=== PATIENT | female | born 1965 | race American Indian/Alaskan Native ===

== ENCOUNTER 2017-02-03 07:52 | Emergency (ER) | payer SELFPAY ==
[2017-02-03 08:01] VITALS: BP 169/71
[2017-02-03 08:27] LABS: Basophils % (Auto) 0.9 % (0.0-1.8); Eosinophils % (Auto) 1.6 % (0.0-4.3); Hematocrit 33.4 % (30.3-42.9); Hemoglobin 11.2 gm/dl (10.1-14.3); Mean Corpuscular HGB Conc 34 % (30-34); Mean Corpuscular Hemoglobin 26 pg (28-32); Mean Corpuscular Volume 78 fl (79-97); Platelet Count 334 K/mm3 (140-440); Red Blood Count 4.27 M/mm3 (3.65-5.03); Red Cell Distribution Width 16.5 % (13.2-15.2); White Blood Count 9.5 K/mm3 (4.5-11.0)
[2017-02-03 08:41] LABS: Bacteria,Urine 1+ /HPF (Negative); Bilirubin,Urine NEG (Negative); Blood,Urine MOD (Negative); Ketones,Urine NEG (Negative); Leukocyte Esterase,Urine LG (Negative); Mucus,Urine FEW /HPF; Nitrite,Urine NEG (Negative); Urobilinogen,Urine < 2.0 mg/dL (<2.0)
[2017-02-03 08:43] LABS: WBC,Urine > 182.0 /HPF (0.0-6.0)
[2017-02-03 08:54] LABS: Alanine Aminotransferase 7 units/L (7-56); Albumin 3.8 g/dL (3.9-5); Albumin/Globulin Ratio 1.2 %; Alkaline Phosphatase 46 units/L (35-129); Anion Gap 16 mmol/L; BUN/Creatinine Ratio 11.25; Blood Urea Nitrogen 9 mg/dL (7-17); Calcium 8.9 mg/dL (8.4-10.2); Carbon Dioxide 23 mmol/L (22-30); Chloride 104.4 mmol/L (98-107); Glucose 116 mg/dL (65-100); Lipase 20 units/L (13-60); Potassium 3.7 mmol/L (3.6-5.0); Sodium 140 mmol/L (137-145)
--- NOTE | 2017-02-03 11:32 | Emergency Department Report ---
<YANICK GARCIA - Last Filed: 02/03/17 11:28> ED Female HPI - General Chief complaint: Abdominal Pain Stated complaint: LEFT SIDE PAIN/CONSTIPATION Time Seen by Provider: 02/03/17 11:09 Source: patient Mode of arrival: Ambulatory Limitations: No Limitations - History of Present Illness MD Complaint: dysuria Onset/Timin -: Sudden, days(s) Location: suprapubic Radiation: non-radiating Severity: mild Severity scale (0 -10): 3 Quality: burning, other (uregency and freqency no discharge) Consistency: intermittent Improves with: none Worsens with: urination Are you Now?: No Last Menstrual Period: 01/18/16 EDC: 10/24/16 Associated Symptoms: abdominal pain, dysuria. denies: vaginal discharge, vaginal bleeding, nausea/vomiting, fever/chills, headaches, hematuria, shortness of breath - Related Data Sexually active: No Previous Rx's Medication Instructions Recorded Last Taken Type Lisinopril [Zestril] 2.5 mg PO QDAY #30 tablet 08/02/13 Unknown Rx Acetaminophen/Codeine [Tylenol #3] 1 tab PO BID PRN #10 tab 12/09/14 Unknown Rx Erythromycin [Erythromycin Ophth 10 applic OU TID #1 tube 12/09/14 Unknown Rx Oint] Cephalexin [Keflex] 500 mg PO BID #14 capsule 02/03/17 Unknown Rx Phenazopyridine [Pyridium] 100 mg PO TID #6 tab 02/03/17 Unknown Rx Allergies Allergy/AdvReac Type Severity Reaction Status Date / Time No Known Allergies Allergy Verified 02/03/17 07:56 ED Review of Systems ROS: Stated complaint: LEFT SIDE PAIN/CONSTIPATION Other details as noted in HPI Constitutional: denies: chills, fever Eyes: denies: eye pain, eye discharge, vision change ENT: denies: ear pain, throat pain Respiratory: denies: cough, shortness of breath, wheezing Cardiovascular: denies: chest pain, palpitations Endocrine: no symptoms reported Gastrointestinal: abdominal pain Genitourinary: urgency, dysuria, frequency. denies: discharge Musculoskeletal: denies: back pain, joint swelling, arthralgia Skin: denies: rash, lesions Neurological: denies: headache, weakness, paresthesias Psychiatric: denies: anxiety, depression Hematological/Lymphatic: denies: easy bleeding, easy bruising ED Past Medical Hx - Past Medical History Previous Medical History?: No - Surgical History Past Surgical History?: No Additional Surgical History: Tubaligation - Social History Smoking Status: Current Every Day Smoker Substance Use Type: None - Medications Home Medications: Home Medications Medication Instructions Recorded Confirmed Last Taken Type Lisinopril [Zestril] 2.5 mg PO QDAY #30 tablet 08/02/13 Unknown Rx Acetaminophen/Codeine [Tylenol #3] 1 tab PO BID PRN #10 tab 12/09/14 Unknown Rx Erythromycin [Erythromycin Ophth 10 applic OU TID #1 tube 12/09/14 Unknown Rx Oint] Cephalexin [Keflex] 500 mg PO BID #14 capsule 02/03/17 Unknown Rx Phenazopyridine [Pyridium] 100 mg PO TID #6 tab 02/03/17 Unknown Rx ED Physical Exam - General Limitations: No Limitations General appearance: alert, in no apparent distress - Head Head exam: Present: atraumatic, normocephalic - Eye Eye exam: Present: normal appearance - ENT ENT exam: Present: mucous membranes moist - Neck Neck exam: Present: normal inspection - Respiratory Respiratory exam: Present: normal lung sounds bilaterally. Absent: respiratory distress - Cardiovascular Cardiovascular Exam: Present: regular rate, normal rhythm. Absent: systolic murmur, diastolic murmur, rubs, gallop - GI/Abdominal GI/Abdominal exam: Present: soft, normal bowel sounds - Rectal Rectal exam: Present: deferred - External exam: Present: other (exam deferred per pt ) - Extremities Exam Extremities exam: Present: normal inspection - Back Exam Back exam: Present: normal inspection - Neurological Exam Neurological exam: Present: alert, oriented X3 - Psychiatric Psychiatric exam: Present: normal affect, normal mood - Skin Skin exam: Present: warm, dry, intact, normal color. Absent: rash ED Course Vital Signs 02/03/17 07:56 Temperature 97.4 F L Pulse Rate 65 Respiratory 20 Rate Blood Pressure 169/71 Blood Pressure 165/71 [Left] O2 Sat by Pulse 100 Oximetry ED Medical Decision Making - Lab Data Result diagrams: 02/03/17 08:17 02/03/17 08:17 Laboratory Tests 02/03/17 02/03/17 02/03/17 08:04 08:17 08:17 WBC 9.5 RBC 4.27 Hgb 11.2 Hct 33.4 MCV 78 L MCH 26 L MCHC 34 RDW 16.5 H Plt Count 334 Lymph % (Auto) 20.2 [place] % (Auto) 7.9 H Eos % (Auto) 1.6 Baso % (Auto) 0.9 Lymph # 1.9 [place] # 0.8 Eos # 0.1 Baso # 0.1 Seg Neutrophils % 69.4 Seg Neutrophils # 6.6 Sodium Potassium Chloride Carbon Dioxide Anion Gap BUN Creatinine Estimated GFR BUN/Creatinine Ratio Glucose Calcium Total Bilirubin AST ALT Alkaline Phosphatase Total Protein Albumin Albumin/Globulin Ratio Lipase HCG, Qual Negative Urine Color Yellow Urine Turbidity Cloudy Urine pH 6.0 Ur Specific [place] 1.015 Urine Protein 100 mg/dl Urine Glucose (UA) 50 Urine Ketones Neg Urine Blood Mod Urine Nitrite Neg Urine Bilirubin Neg Urine Urobilinogen < 2.0 Ur Leukocyte Esterase Lg Urine WBC (Auto) > 182.0 H Urine RBC (Auto) 67.0 U Epithel Cells (Auto) 1.0 Urine Bacteria (Auto) 1+ Urine WBC Clumps 1+ Urine Mucus Few 02/03/17 08:17 WBC RBC Hgb Hct MCV MCH MCHC RDW Plt Count Lymph % (Auto) [place] % (Auto) Eos % (Auto) Baso % (Auto) Lymph # [place] # Eos # Baso # Seg Neutrophils % Seg Neutrophils # Sodium 140 Potassium 3.7 Chloride 104.4 Carbon Dioxide 23 Anion Gap 16 BUN 9 Creatinine 0.8 Estimated GFR > 60 BUN/Creatinine Ratio 11.25 Glucose 116 H Calcium 8.9 Total Bilirubin 0.30 AST 9 ALT 7 Alkaline Phosphatase 46 Total Protein 7.0 Albumin 3.8 L Albumin/Globulin Ratio 1.2 Lipase 20 HCG, Qual Urine Color Urine Turbidity Urine pH Ur Specific [place] Urine Protein Urine Glucose (UA) Urine Ketones Urine Blood Urine Nitrite Urine Bilirubin Urine Urobilinogen Ur Leukocyte Esterase Urine WBC (Auto) Urine RBC (Auto) U Epithel Cells (Auto) Urine Bacteria (Auto) Urine WBC Clumps Urine Mucus - Medical Decision Making UTI, urinary urgency frequency and dysuria no vaginal discharge no vaginal bleeding, not sexullay active mild superpubic pain no cva tenderness likely cystitis Critical care attestation.: If time is entered above; I have spent that time in minutes in the direct care of this critically ill patient, excluding procedure time. ED Disposition Disposition: DC-01 TO HOME OR SELFCARE Is pt being admited?: No Does the pt Need Aspirin: No Condition: Good Instructions: Abdominal Pain (ED) Prescriptions: Cephalexin [Keflex] 500 mg PO BID #14 capsule Phenazopyridine [Pyridium] 100 mg PO TID #6 tab Referrals: PRIMARY CARE, [Primary Care Provider] - 3-5 Days Forms: Work/School Release Form(ED) Time of Disposition: 11:34 <MALLORY HO - Last Filed: 02/03/17 13:43> ED Medical Decision Making - Lab Data Result diagrams: 02/03/17 08:17 02/03/17 08:17
== END 2017-02-03 11:38 | disposition home or self-care (01) ==
LOC: ED 07:52
DX: R10.9 Unspecified abdominal pain (principal); R30.0 Dysuria; F17.200 Nicotine dependence, unspecified, uncomplicated
CPT/HCPCS: 36415; 80053; 81001; 83690; 84703; 85025; 99283

== ENCOUNTER 2017-07-22 11:39 | Emergency (ER) | payer OTHER ==
[2017-07-22 12:38] LABS: Basophils % (Auto) 1.7 % (0.0-1.8); Eosinophils % (Auto) 4.9 % (0.0-4.3); Hematocrit 36.2 % (30.3-42.9); Mean Corpuscular HGB Conc 33 % (30-34); Mean Corpuscular Hemoglobin 27 pg (28-32); Mean Corpuscular Volume 81 fl (79-97); Platelet Count 263 K/mm3 (140-440); Red Blood Count 4.48 M/mm3 (3.65-5.03); Red Cell Distribution Width 17.6 % (13.2-15.2); White Blood Count 6.3 K/mm3 (4.5-11.0)
[2017-07-22 12:57] LABS: Anion Gap 18 mmol/L; BUN/Creatinine Ratio 16; Blood Urea Nitrogen 11 mg/dL (7-17); Calcium 8.8 mg/dL (8.4-10.2); Carbon Dioxide 24 mmol/L (22-30); Chloride 104.4 mmol/L (98-107); Glucose 139 mg/dL (65-100); Potassium 3.9 mmol/L (3.6-5.0); Sodium 142 mmol/L (137-145)
--- NOTE | 2017-07-22 13:34 | XRay Report ---
ROUTINE CHEST, TWO VIEWS: HISTORY: Chest pain, cough. The trachea, heart, mediastinal contour, lung tan and bony thorax are unremarkable. IMPRESSION: Unremarkable chest x-ray.
--- NOTE | 2017-07-22 19:40 | Emergency Department Report ---
ED Chest Pain HPI - General Chief Complaint: Chest Pain Stated Complaint: CHEST PAIN Time Seen by Provider: 07/22/17 19:39 Source: patient, family Mode of arrival: Ambulatory Limitations: No Limitations - History of Present Illness Initial Comments: Patient here reports that she has cough 1 week. She said prior to that she has a runny nose and nasal congestion with drainage to the back of her throat and cough is worse with laying down at night. She is complaining of pain to her mid sternal area and mid back here with coughing. Patient says she was having some pelvic pain yesterday but she is okay now. She said that cough is worse in the p.m. and she has some shortness of breath also when she lies down. She said cough is dry. And sometimes she feels dizzy and her ears feel clogged. Denies any sore throat, difficulty swallowing. Past medical history is negative surgical history of tubal ligation pain to chest is 8 out of 10, only with cough in. Denies any history of heart disease. Denies any history of swelling to legs, blood clots personally or in her family, recent long distance travel by airplane or car, hormonal therapy or any clotting disorder. Denies any fever or chills. MD Complaint: chest pain, other (cough and with upper respiratory symptoms.) Onset/Timin -: week(s) Onset: other (only with coughing) Pain Location: other (midsternal area and mid back upper only with coughing) Pain Radiation: none Severity: severe Severity scale (0 -10): 8 Quality: aching Consistency: intermittent Improves With: rest Worsens With: other (cough) Context: other (reports coughing causing upper back pain and midsternal chest pain) re: denies: nausea, vomting, diaphoresis, dyspnea, sense of impending doom Other Symptoms: cough. denies: fever, syncope, rash, acid taste in mouth, leg swelling, palpitations, burping Treatments Prior to Arrival: none Aspirin use within the Past 7 Days: (0) No - Related Data On Oral Contraceptives: No Previous Rx's Medication Instructions Recorded Last Taken Type Lisinopril [Zestril] 2.5 mg PO QDAY #30 tablet 08/02/13 Unknown Rx Acetaminophen/Codeine [Tylenol #3] 1 tab PO BID PRN #10 tab 12/09/14 Unknown Rx Erythromycin [Erythromycin Ophth 10 applic OU TID #1 tube 12/09/14 Unknown Rx Oint] Cephalexin [Keflex] 500 mg PO BID #14 capsule 02/03/17 Unknown Rx Phenazopyridine [Pyridium] 100 mg PO TID #6 tab 02/03/17 Unknown Rx Azithromycin [Zithromax Z-JAZMIN] 250 mg PO DAILY 5 Days #6 tab 07/22/17 Unknown Rx Cetirizine HCl [ZyrTEC] 10 mg PO QAM 14 Days #14 capsule 07/22/17 Unknown Rx Fluticasone [Flonase] 1 spray NS QDAY 14 Days #1 bottle 07/22/17 Unknown Rx guaiFENesin/CODEINE [Robitussin AC] 10 ml PO QHS PRN 7 Days #70 ml 07/22/17 Unknown Rx Allergies Allergy/AdvReac Type Severity Reaction Status Date / Time Penicillins Allergy Rash Verified 07/22/17 12:08 Heart Score - HEART Score History: Slightly suspicious EKG: Normal Age: 45-65 Risk factors: No known risk factors Troponin: < normal limit HEART Score: 1 - Critical Actions Critical Actions: 0-3 pts:0.9-1.7%risk of adverse cardiac event.Candidate for discharge ED Review of Systems ROS: Stated complaint: CHEST PAIN Other details as noted in HPI Comment: All other systems reviewed and negative Constitutional: no symptoms reported Eyes: denies: eye pain, eye discharge ENT: congestion (congestion and nasal drainage), other (Clogged ears sensation) . denies: ear pain, throat pain, dental pain Respiratory: cough, shortness of breath (occasional shortness of breath with laying down). denies: SOB with exertion, SOB at rest, stridor, wheezing Cardiovascular: chest pain (midsternal chest pain only with coughing). denies: palpitations, dyspnea on exertion, edema, syncope, paroxysmal nocturnal dyspnea Gastrointestinal: denies: abdominal pain, nausea, vomiting, diarrhea, constipation, hematemesis, melena, hematochezia Genitourinary: denies: urgency, dysuria, frequency, hematuria, discharge Musculoskeletal: back pain (cough ). denies: joint swelling, arthralgia, myalgia Skin: denies: rash Neurological: denies: headache, weakness, numbness, paresthesias, confusion, abnormal gait, vertigo ED Past Medical Hx - Past Medical History Previous Medical History?: No - Surgical History Past Surgical History?: Yes Additional Surgical History: Tubaligation - Family History Family history: no significant - Social History Smoking Status: Current Every Day Smoker Substance Use Type: None - Medications Home Medications: Home Medications Medication Instructions Recorded Confirmed Last Taken Type Lisinopril [Zestril] 2.5 mg PO QDAY #30 tablet 08/02/13 Unknown Rx Acetaminophen/Codeine [Tylenol #3] 1 tab PO BID PRN #10 tab 12/09/14 Unknown Rx Erythromycin [Erythromycin Ophth 10 applic OU TID #1 tube 12/09/14 Unknown Rx Oint] Cephalexin [Keflex] 500 mg PO BID #14 capsule 02/03/17 Unknown Rx Phenazopyridine [Pyridium] 100 mg PO TID #6 tab 02/03/17 Unknown Rx Azithromycin [Zithromax Z-JAZMIN] 250 mg PO DAILY 5 Days #6 tab 07/22/17 Unknown Rx Cetirizine HCl [ZyrTEC] 10 mg PO QAM 14 Days #14 capsule 07/22/17 Unknown Rx Fluticasone [Flonase] 1 spray NS QDAY 14 Days #1 bottle 07/22/17 Unknown Rx guaiFENesin/CODEINE [Robitussin AC] 10 ml PO QHS PRN 7 Days #70 ml 07/22/17 Unknown Rx ED Physical Exam - General Limitations: No Limitations General appearance: alert, in no apparent distress - Head Head exam: Present: atraumatic, normocephalic, normal inspection - Eye Eye exam: Present: normal appearance, PERRL, EOMI. Absent: periorbital swelling , periorbital tenderness Pupils: Present: normal accommodation - ENT ENT exam: Present: normal exam, normal orophraynx, mucous membranes moist, normal external ear exam (nasal mucosa congested with erythema and clear drainage. Meds or sinus tenderness to palpate). Absent: TM's normal bilaterally (TM congested without erythema) - Neck Neck exam: Present: normal inspection, full ROM, other (No C-spine tenderness). Absent: tenderness, meningismus, lymphadenopathy, thyromegaly - Respiratory Respiratory exam: Present: normal lung sounds bilaterally. Absent: respiratory distress, chest wall tenderness, accessory muscle use - Cardiovascular Cardiovascular Exam: Present: regular rate, normal rhythm, normal heart sounds. Absent: systolic murmur, diastolic murmur - GI/Abdominal GI/Abdominal exam: Present: soft, normal bowel sounds. Absent: distended, tenderness, guarding, rebound, rigid, organomegaly, mass, bruit, pulsatile mass , hernia - Extremities Exam Extremities exam: Present: normal inspection, full ROM, normal capillary refill , other (no clubbing, cyanosis or edema to extremities. No neurovascular compromise. +2 pulses to all extremities). Absent: tenderness, pedal edema, joint swelling, calf tenderness - Back Exam Back exam: Present: normal inspection, full ROM, other (ambulates without any difficulties). Absent: tenderness, CVA tenderness (R), CVA tenderness (L), muscle spasm, paraspinal tenderness, vertebral tenderness, rash noted - Neurological Exam Neurological exam: Present: alert, oriented X3, normal gait, reflexes normal. Absent: motor sensory deficit - Psychiatric Psychiatric exam: Present: normal affect, normal mood - Skin Skin exam: Present: warm, dry, intact, normal color. Absent: rash ED Course Vital Signs 07/22/17 07/22/17 12:08 17:56 Temperature 98.5 F Pulse Rate 89 72 Respiratory 18 Rate Blood Pressure 191/89 Blood Pressure 179/89 [Right] O2 Sat by Pulse 97 99 Oximetry - Reevaluation(s) Reevaluation #1: 07/22/17 21:27 Patient stable throughout ED course. MERLY score - Merly Score Age > 65: (0) No Aspirin use within the Past 7 Days: (0) No 3 or more CAD Risk Factors: (0) No 2 or more Angina events in past 24 hrs: (0) No Known CAD with more than 50% Stenosis: (0) No Elevated Cardiac Markers: (0) No ST Deviation Greater than 0.5mm: (0) No MERLY Score: 0 ED Medical Decision Making - Lab Data Result diagrams: 07/22/17 12:23 07/22/17 12:23 Vital Signs 07/22/17 07/22/17 12:08 17:56 Temperature 98.5 F Pulse Rate 89 72 Respiratory 18 Rate Blood Pressure 191/89 Blood Pressure 179/89 [Right] O2 Sat by Pulse 97 99 Oximetry - EKG Data -: EKG Interpreted by Me (normal sinus rhythm at 68 bpm) EKG shows normal: sinus rhythm Rate: normal - EKG Data Interpretation: no acute changes - Radiology Data Radiology results: report reviewed CXR revealed no acute cardiopulmonary findings - Medical Decision Making ED course: Patient here complaining of cough, nasal congestion runny nose and upper respiratory symptoms with chest pain and upper back pain with coughing. Patient vital signs are stable she is afebrile. Troponin levels are normal, EKG shows normal sinus rhythm at [address] abnormalities, chest x-ray revealed no acute cardiopulmonary findings. CBC and BMP normal , test is negative. Patient cardiac heart score and MERLY score is low risk for cardiac event. Based on PERC rule and wells criteria patient is no risks for pulmonary embolism or DVT. Lab results and EKG and chest x-ray results explained to patient. She voiced understanding. I discussed that she has a sinus infection with cough and congestion since she's been having symptoms for [address] her on antibiotic, Zyrtec and Flonase and she should follow up with her primary care physician in 3 days and if she does not have a primary care physician she can follow up with [facility]. Patient discharged home in stable condition with prescription for Zithromax, Flonase, Zyrtec andGuaifenesin with codeine daily at bedtime. Critical care attestation.: If time is entered above; I have spent that time in minutes in the direct care of this critically ill patient, excluding procedure time. ED Disposition Clinical Impression: Cough with congestion of paranasal sinus Acute maxillary sinusitis Qualifiers: Recurrence: not specified as recurrent Qualified Code(s): J01.00 - Acute maxillary sinusitis, unspecified Disposition: DC-01 TO HOME OR SELFCARE Is pt being admited?: No Does the pt Need Aspirin: No Condition: Stable Instructions: Sinusitis (ED), Acute Cough (ED) Additional Instructions: Please increase her fluid intake Flush nostrils with saline nasal spray take antibiotic as prescribed F/U with primary care physician as instructed You can gargle with warm salt water to help with drainage the back of throat Prescriptions: guaiFENesin/CODEINE [Robitussin AC] 10 ml PO QHS PRN 7 Days #70 ml PRN Reason: Cough Azithromycin [Zithromax Z-JAZMIN] 250 mg PO DAILY 5 Days #6 tab Cetirizine HCl [ZyrTEC] 10 mg PO QAM 14 Days #14 capsule Fluticasone [Flonase] 1 spray NS QDAY 14 Days #1 bottle Referrals: PRIMARY CARE, [Primary Care Provider] - 3-5 Days [facility] [Outside] - 3-5 Days Forms: Accompanied Note, Work/School Release Form(ED)
[2017-07-22 21:41] VITALS: BP 159/88
== END 2017-07-22 21:46 | disposition home or self-care (01) ==
LOC: ED 11:39
DX: J01.00 Acute maxillary sinusitis, unspecified (principal); F17.200 Nicotine dependence, unspecified, uncomplicated; Z98.51 Tubal ligation status; Z88.0 Allergy status to penicillin
CPT/HCPCS: 36415; 71020; 80048; 84484; 84703; 85025; 93005; 93010

== ENCOUNTER 2017-09-30 17:43 | Emergency (ER) | payer OTHER ==
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
[2017-09-30] MEDS ORDERED: NORCO 5/325 PO ONE (22:05)
--- NOTE | 2017-09-30 22:51 | Cat Scan Report ---
FINAL REPORT PROCEDURE: CT HEAD/BRAIN W CON TECHNIQUE: Computerized tomography of the head was performed without contrast material. HISTORY: head ache from door hinge hitting in head COMPARISON: No prior studies are available for comparison. FINDINGS: Skull and scalp: Normal. Paranasal sinuses: Normal. Ventricles and subarachnoid spaces: Normal. Cerebrum: No evidence of hemorrhage, acute infarction or mass . Cerebellum and brainstem: No evidence of hemorrhage, acute infarction or mass. Periventricular and deep white matter diminished densities consistent with microangiopathy. Vasculature: Normal. Comments: None. 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 No hemorrhage
[2017-10-01 00:12] VITALS: BP 184/93
== END 2017-10-01 00:13 | disposition home or self-care (01) ==
LOC: ED 17:43
DX: G44.85 Primary stabbing headache (principal); W22.03XA Walked into furniture, initial encounter; Y93.89 Activity, other specified; Y92.89 Other specified places as the place of occurrence of the external cause; Y99.0 Civilian activity done for income or pay
CPT/HCPCS: 70460

== ENCOUNTER 2019-07-04 11:06 | Emergency (ER) | payer SELFPAY ==
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
[2019-07-04 12:26] LABS: Basophils # (Auto) 0.1 K/mm3 (0.0-0.1); Basophils % (Auto) 1.5 % (0.0-1.8); Eosinophils # (Auto) 0.1 K/mm3 (0.0-0.4); Eosinophils % (Auto) 1.7 % (0.0-4.3); Hematocrit 40.5 % (30.3-42.9); Lymphocytes % (Auto) 43.8 % (13.4-35.0); Mean Corpuscular HGB Conc 35 % (30-34); Mean Corpuscular Volume 87 fl (79-97); Monocytes # (Auto) 0.5 K/mm3 (0.0-0.8); Monocytes % (Auto) 7.6 % (0.0-7.3); Platelet Count 268 K/mm3 (140-440); Red Blood Count 4.65 M/mm3 (3.65-5.03); Red Cell Distribution Width 14.2 % (13.2-15.2)
[2019-07-04 12:44] LABS: Alanine Aminotransferase 49 units/L (7-56); Albumin 4.1 g/dL (3.9-5); BUN/Creatinine Ratio 13; Blood Urea Nitrogen 9 mg/dL (7-17); Calcium 9.4 mg/dL (8.4-10.2); Hemolysis Index 8
[2019-07-04] MEDS ORDERED: amLODIPine 5 MG TAB PO ONE (13:19)
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
--- NOTE | 2019-07-04 14:46 | Cat Scan Report ---
CT head without contrast INDICATION : MAIN: headache,blurred vision X 2 DAYS. TECHNIQUE: Axial imaging performed from the skull apex through the skull base without the use of con trast. All CT scans at this location are performed using CT dose reduction for ALARA by means of aut omated exposure control. COMPARISON: CT head from 09/30/2017 FINDINGS: Parenchyma: No acute intracranial hemorrhage or parenchymal abnormality. Ventricles: Ventricles are normal in size and appear symmetric. Soft tissues: Soft tissues including the orbits appear normal. Bones: No acute osseous abnormality. Sinuses: Sinuses and mastoid air cells are clear. IMPRESSION: No acute abnormality. Signer Name: Teja Charles MD Signed: 07/04/2019 2:42 PM Workstation Name: [id number]
[2019-07-04 15:49] VITALS: BP 161/94
== END 2019-07-04 15:48 | disposition home or self-care (01) ==
LOC: ED 11:06
DX: S09.90XA Unspecified injury of head, initial encounter (principal); I10 Essential (primary) hypertension; F17.200 Nicotine dependence, unspecified, uncomplicated; Z98.51 Tubal ligation status; Z88.0 Allergy status to penicillin; Z79.899 Other long term (current) drug therapy; X58.XXXA Exposure to other specified factors, initial encounter; Y93.89 Activity, other specified; Y92.89 Other specified places as the place of occurrence of the external cause; Y99.8 Other external cause status
CPT/HCPCS: 36415; 70450; 80053; 85025

== ENCOUNTER 2020-12-11 10:05 | Outpatient (CLI) | payer OTHER ==
--- NOTE | 2020-12-11 12:20 | XRay Report ---
LEFT WRIST 4 VIEWS. INDICATION: Left wrist pain. COMPARISON: None. IMPRESSION: No acute osseous or soft tissue abnormality. 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 The remaining carpal bones and articulations are unremarkable. BILATERAL KNEES 3 VIEWS INDICATION: Bilateral knee pain. COMPARISON: None. IMPRESSION: No acute osseous or soft tissue abnormality. No significant DJD. Small to moderate en thesophytes are noted along the superior border of both patella, left greater than right. Focal calci fications are also noted in the proximal right patellar tendon which could represent chronic injury. Signer Name: Steve Juarez Jr, MD Signed: 12/11/2020 12:16 PM Workstation Name: [id number]
== END 2020-12-11 10:06 | disposition home or self-care (01) ==
LOC: XRAY 10:05
PROVIDERS: ATTEND Internal Medicine
DX: M19.032 Primary osteoarthritis, left wrist (principal); M76.52 Patellar tendinitis, left knee; M76.51 Patellar tendinitis, right knee

== ENCOUNTER 2021-02-21 11:22 | Emergency (ER) | payer OTHER ==
--- NOTE | 2021-02-21 13:00 | Emergency Department Report ---
ED General Adult HPI - General Chief complaint: Abdominal Pain Stated complaint: ABDOMIN Time Seen by Provider: 02/21/21 12:32 Source: patient Mode of arrival: Ambulatory Limitations: No Limitations - History of Present Illness Initial comments: Patient is a 55-year-old female presents emergency room complaints of generalized abdominal pain for 4 to 5 weeks. She states that she went to her primary care doctor yesterday and was advised to be seen in the emergency department for lab work and CT scan. She has associated diarrhea. She denies any fever, nausea, vomiting, hematochezia, melena, hematemesis, urinary symptoms. She denies any past medical history. She has not had a colonoscopy. States that patient has a penicillin allergy, she states that she has taken penicillin recently and did not have a reaction. She states that she has a past surgical history of tubal ligation. Severity scale (0 -10): 9 - Related Data Previous Rx's Medication Instructions Recorded Last Taken Type Lisinopril [Zestril] 2.5 mg PO QDAY #30 tablet 08/02/13 Unknown Rx Acetaminophen/Codeine [Tylenol #3] 1 tab PO BID PRN #10 tab 12/09/14 Unknown Rx Erythromycin [Erythromycin Ophth 10 applic OU TID #1 tube 12/09/14 Unknown Rx Oint] Phenazopyridine [Pyridium] 100 mg PO TID #6 tab 02/03/17 Unknown Rx cephALEXin [Keflex] 500 mg PO BID #14 capsule 02/03/17 Unknown Rx Azithromycin [Zithromax Z-JAZMIN] 250 mg PO DAILY 5 Days #6 tab 07/22/17 Unknown Rx Cetirizine HCl [ZyrTEC] 10 mg PO QAM 14 Days #14 capsule 07/22/17 Unknown Rx Fluticasone [Flonase] 1 spray NS QDAY 14 Days #1 bottle 07/22/17 Unknown Rx guaiFENesin/CODEINE [Robitussin AC] 10 ml PO QHS PRN 7 Days #70 ml 07/22/17 Unknown Rx Ibuprofen 600 mg PO Q8H PRN #15 tablet 09/30/17 Unknown Rx Acetaminophen [Tylenol] 650 mg PO Q6HR PRN #30 capsule 07/04/19 Unknown Rx Amlodipine Besylate [Norvasc] 5 mg PO DAILY #30 tablet 07/04/19 Unknown Rx Ciprofloxacin HCl [Ciprofloxacin 500 mg PO BID 10 Days #40 tablet 02/21/21 Unknown Rx TAB] Ondansetron [Zofran Odt] 4 mg PO Q8HR PRN #10 tab.rapdis 02/21/21 Unknown Rx metFORMIN [Glucophage] 500 mg PO DAILY #30 tablet 02/21/21 Unknown Rx metroNIDAZOLE [Flagyl] 500 mg PO BID 10 Days #20 tab 02/21/21 Unknown Rx traMADoL [Ultram 50 MG tab] 50 mg PO Q6HR PRN #12 tablet 02/21/21 Unknown Rx Allergies Allergy/AdvReac Type Severity Reaction Status Date / Time Penicillins Allergy Rash Verified 09/30/17 18:03 ED Review of Systems ROS: Stated complaint: ABDOMIN Other details as noted in HPI Comment: All other systems reviewed and negative ED Past Medical Hx - Past Medical History Previous Medical History?: No - Surgical History Past Surgical History?: Yes Additional Surgical History: Tubal ligation - Social History Smoking Status: Current Every Day Smoker Substance Use Type: Alcohol - Medications Home Medications: Home Medications Medication Instructions Recorded Confirmed Last Taken Type Lisinopril [Zestril] 2.5 mg PO QDAY #30 tablet 08/02/13 Unknown Rx Acetaminophen/Codeine [Tylenol #3] 1 tab PO BID PRN #10 tab 12/09/14 Unknown Rx Erythromycin [Erythromycin Ophth 10 applic OU TID #1 tube 12/09/14 Unknown Rx Oint] Phenazopyridine [Pyridium] 100 mg PO TID #6 tab 02/03/17 Unknown Rx cephALEXin [Keflex] 500 mg PO BID #14 capsule 02/03/17 Unknown Rx Azithromycin [Zithromax Z-JAZMIN] 250 mg PO DAILY 5 Days #6 tab 07/22/17 Unknown Rx Cetirizine HCl [ZyrTEC] 10 mg PO QAM 14 Days #14 capsule 07/22/17 Unknown Rx Fluticasone [Flonase] 1 spray NS QDAY 14 Days #1 bottle 07/22/17 Unknown Rx guaiFENesin/CODEINE [Robitussin AC] 10 ml PO QHS PRN 7 Days #70 ml 07/22/17 Unknown Rx Ibuprofen 600 mg PO Q8H PRN #15 tablet 09/30/17 Unknown Rx Acetaminophen [Tylenol] 650 mg PO Q6HR PRN #30 capsule 07/04/19 Unknown Rx Amlodipine Besylate [Norvasc] 5 mg PO DAILY #30 tablet 07/04/19 Unknown Rx Ciprofloxacin HCl [Ciprofloxacin 500 mg PO BID 10 Days #40 tablet 02/21/21 Unknown Rx TAB] Ondansetron [Zofran Odt] 4 mg PO Q8HR PRN #10 tab.rapdis 02/21/21 Unknown Rx metFORMIN [Glucophage] 500 mg PO DAILY #30 tablet 02/21/21 Unknown Rx metroNIDAZOLE [Flagyl] 500 mg PO BID 10 Days #20 tab 02/21/21 Unknown Rx traMADoL [Ultram 50 MG tab] 50 mg PO Q6HR PRN #12 tablet 02/21/21 Unknown Rx ED Physical Exam - General Limitations: No Limitations General appearance: alert, in no apparent distress - Head Head exam: Present: atraumatic, normocephalic - Eye Eye exam: Present: normal appearance - ENT ENT exam: Present: mucous membranes moist - Respiratory Respiratory exam: Present: normal lung sounds bilaterally. Absent: respiratory distress, wheezes, rales, rhonchi, stridor, chest wall tenderness, accessory muscle use, decreased breath sounds, prolonged expiratory - Cardiovascular Cardiovascular Exam: Present: regular rate, normal rhythm, normal heart sounds. Absent: systolic murmur, diastolic murmur, rubs, gallop - GI/Abdominal GI/Abdominal exam: Present: soft, tenderness (mild generalized), normal bowel sounds. Absent: distended, guarding, rebound, rigid - Neurological Exam Neurological exam: Present: alert, oriented X3 - Psychiatric Psychiatric exam: Present: normal affect, normal mood - Skin Skin exam: Present: warm, dry, intact ED Course Vital Signs 02/21/21 02/21/21 12:20 17:18 Temperature 98.9 F 99.0 F Pulse Rate 88 90 Respiratory 18 16 Rate Blood Pressure 136/81 134/79 [Right] O2 Sat by Pulse 97 96 Oximetry ED Medical Decision Making - Lab Data Result diagrams: 02/21/21 12:50 02/21/21 12:50 Lab Results 02/21/21 02/21/21 02/21/21 Range/Units 12:50 12:50 Unknown WBC 7.3 (4.5-11.0) K/mm3 RBC 5.35 H (3.65-5.03) M/mm3 Hgb 16.1 H (10.1-14.3) gm/dl Hct 46.6 H (30.3-42.9) % MCV 87 (79-97) fl MCH 30 (28-32) pg MCHC 35 H (30-34) % RDW 13.9 (13.2-15.2) % Plt Count 308 (140-440) K/mm3 Lymph % (Auto) 45.8 H (13.4-35.0) % [place] % (Auto) 6.4 (0.0-7.3) % Eos % (Auto) 2.0 (0.0-4.3) % Baso % (Auto) 1.0 (0.0-1.8) % Lymph # (Auto) 3.4 (1.2-5.4) K/mm3 [place] # (Auto) 0.5 (0.0-0.8) K/mm3 Eos # (Auto) 0.1 (0.0-0.4) K/mm3 Baso # (Auto) 0.1 (0.0-0.1) K/mm3 Seg Neutrophils % 44.8 (40.0-70.0) % Seg Neutrophils # 3.3 (1.8-7.7) K/mm3 Sodium 136 L (137-145) mmol/L Potassium 4.3 (3.6-5.0) mmol/L Chloride 97.4 L (98-107) mmol/L Carbon Dioxide 27 (22-30) mmol/L Anion Gap 16 mmol/L BUN 6 L (7-17) mg/dL Creatinine 0.6 (0.6-1.2) mg/dL Estimated GFR > 60 ml/min BUN/Creatinine Ratio 10 % Glucose 374 H (65-100) mg/dL Calcium 10.3 H (8.4-10.2) mg/dL Total Bilirubin 0.30 (0.1-1.2) mg/dL AST 248 H (5-40) units/L ALT 197 H (7-56) units/L Alkaline Phosphatase 97 (35-129) units/L Total Protein 7.5 (6.3-8.2) g/dL Albumin 4.1 (3.9-5) g/dL Albumin/Globulin Ratio 1.2 % Lipase 31 (13-60) units/L Urine Color Yellow (Yellow) Urine Turbidity Clear (Clear) Urine pH 6.0 (5.0-7.0) Ur Specific [place] 1.037 H (1.003-1.030) Urine Protein <15 mg/dl (Negative) mg/dL Urine Glucose (UA) >=500 (Negative) mg/dL Urine Ketones Neg (Negative) mg/dL Urine Blood Neg (Negative) Urine Nitrite Neg (Negative) Urine Bilirubin Neg (Negative) Urine Urobilinogen < 2.0 (<2.0) mg/dL Ur Leukocyte Esterase Sm (Negative) Urine WBC (Auto) 11.0 H (0.0-6.0) /HPF Urine RBC (Auto) 9.0 (0.0-6.0) /HPF U Epithel Cells (Auto) 6.0 (0-13.0) /HPF Urine Bacteria (Auto) 1+ (Negative) /HPF Urine Mucus Few /HPF Urine Trichomonas Few /HPF - Radiology Data Radiology results: report reviewed Ordering Physician: KURTIS MERRILL Date of Service: 02/21/21 Procedure(s): CT abdomen pelvis w con Accession Number(s): [id number] cc: KURTIS MERRILL CT ABDOMEN AND PELVIS WITH CONTRAST HISTORY: generalized abd pain, diarrhea OMNIPAQUE 300 100ML. COMPARISON: There is a CT angiogram abdomen from 08/01/2013, but I am unable to access images TECHNIQUE: CT images of the abdomen and pelvis were obtained following administration of intravenous contrast. All CT scans at this location are performed using CT dose reduction for ALARA by means of automated exposure control. CONTRAST: 100 ml of intravenous contrast administered. FINDINGS: Lungs/bones: There are 3 separate pleural-based nodules measuring up to 2-3 mm (for example see image #2 of series #2 in the right lower lobe). Lungs are otherwise clear. There are degenerative changes in the spine and pelvis with nothing acute. A bone island is present in the left femoral head. Abdomen/pelvis: There is hepatic steatosis. The liver is also enlarged. The gallbladder, spleen, pancreas, adrenals, kidneys, and proximal GI tract appear unremarkable. Urinary bladder is unremarkable. Uterus is slightly lobulated and may represent fibroid disease. No pelvic free fluid. There is moderate colonic diverticulosis with mild inflammatory change along the descending colon in the mid segment. There is no bowel obstruction, abscess, or free air. The appendix and terminal ileum appear normal. IMPRESSION: 1. Acute uncomplicated mid descending colonic diverticulitis. 2. Additional incidental findings as above including pulmonary nodules measuring up to 3 mm. Please see below recommendations. INCIDENTAL PULMONARY NODULE RECOMMENDATION RECOMMENDATION: Solid Nodule size <6 mm -- Single or Multiple - Low Risk Patient: No routine follow-up - High Risk Patient: Optional CT at 12 months Note These recommendations do not apply to lung cancer screening, patients with immunosuppression, or patients with known primary cancer. Note Newly detected indeterminate nodule in persons 35 years of age or older. Persons under the age of 35 should not receive follow-up unless there is a known primary cancer. Note A Perifissural Nodule is a fissure-attached/subpleural, homogeneous, solid nodule that had smooth margins and an oval, lentiform, or triangular shape. They represent about 20% of nodules detected in lung cancer screening, are invariably benign, and do not require follow-up. Nodules 10 mm or larger (or those with suspicious features) will continue to be managed based on the size criteria. Low Risk Patient -- minimal or absent history of smoking and of other known risk factors. High Risk Patient -- history of smoking or of other known risk factors. Nodule dimensions are average of long and short axes, rounded to the nearest millimeter. Based on 2017 Fleischner Society Guidelines found in Radiology 2017 284:228- 243. https://[email or web address] https://www.ncbi.nlm.nih.gov/pmc/articles/PAT8453835/ Signer Name: Teja Charles MD Signed: 02/21/2021 4:23 PM Workstation Name: [id number] Transcribed By: JW Dictated By: Teja Charles MD Electronically Authenticated By: Teja Charles MD Signed Date/Time: 02/21/21 162 DD/ TD/TT: - Medical Decision Making Patient is a 55-year-old female presents emergency room complaints of generalized abdominal pain for 4 to 5 weeks. She states that she went to her primary care doctor yesterday and was advised to be seen in the emergency department for lab work and CT scan. She has associated diarrhea. She denies any fever, nausea, vomiting, hematochezia, melena, hematemesis, urinary symptoms. She denies any past medical history. She has not had a colonoscopy. States that patient has a penicillin allergy, she states that she has taken penicillin recently and did not have a reaction. She states that she has a past surgical history of tubal ligation. Vitals are stable. On exam: Mild generalized abdominal tenderness palpation, no guarding, no rebound, no rigi dity, nor bowel sounds, no peritoneal signs. Lab significant for elevated LFTs and elevated glucose. Patient states that she is not a drinker. Patient states that she was told previously by her primary care doctor she had borderline diabetes but she never followed up. Patient will be given prescription for Metformin, discussed lifestyle modifications and the importance of primary care follow-up. UA within normal limits. CT abdomen pelvis with IV contrast 1. Acute uncomplicated mid descending colonic diverticulitis. 2. Additional incidental findings as above including pulmonary nodules measuring up to 3 mm. Pleasesee below recommendations. Patient meets outpatient criteria for divertic ulitis treatment at this time, discussed return precautions. Patient will be referred to GI doctor and primary care doctor. Discussed all findings with patient and answer questions. Patient given prescription for medications. Advised patient Please take medication as prescribed. Increase your water intake. Please follow the diet for diverticulitis. Follow-up with a GI doctor regarding the diverticulitis and elevation in your liver numbers. Please follow- up with your primary care doctor and please discuss the pulmonary nodule seen on CT. Return to emergency room for any new or worse symptoms. Critical care attestation.: If time is entered above; I have spent that time in minutes in the direct care of this critically ill patient, excluding procedure time. ED Disposition Clinical Impression: Acute diverticulitis, Elevated LFTs, Pulmonary nodule, Hyperglycemia due to diabetes mellitus UTI (urinary tract infection) Qualifiers: Urinary tract infection type: acute cystitis Hematuria presence: without hematuria Qualified Code(s): N30.00 - Acute cystitis without hematuria Disposition: - TO HOME OR SELFCARE Is pt being admited?: No Does the pt Need Aspirin: No Condition: Stable Instructions: Diverticulitis, Hyperglycemia, [id number], Urinary Tract Infection, Adult, Pulmonary Nodule, [id number], Blood Glucose Monitoring, Adult, Diabetes Mellitus Type 2 in Adults (ED), Abdominal Pain (ED) Additional Instructions: Please take medication as prescribed. Increase your water intake. Please follow the diet for diverticulitis. Follow-up with a GI doctor regarding the diverticulitis and elevation in your liver numbers. Please follow-up with your primary care doctor and please discuss the pulmonary nodule seen on CT. Return to emergency room for any new or worse symptoms. Prescriptions: Ciprofloxacin HCl [Ciprofloxacin TAB] 500 mg PO BID 10 Days #40 tablet metroNIDAZOLE [Flagyl] 500 mg PO BID 10 Days #20 tab metFORMIN [Glucophage] 500 mg PO DAILY #30 tablet traMADoL [Ultram 50 MG tab] 50 mg PO Q6HR PRN #12 tablet PRN Reason: Pain , Severe (7-10) Ondansetron [Zofran Odt] 4 mg PO Q8HR PRN #10 tab.rapdis PRN Reason: nausea/vomiting Referrals: PRIMARY CARE, [Primary Care Provider] - 2-3 Days [facility] [Provider Group] - 2-3 Days Time of Disposition: 16:34 Print Language: BRITISH
[2021-02-21 13:02] LABS: Basophils # (Auto) 0.1 K/mm3 (0.0-0.1); Eosinophils # (Auto) 0.1 K/mm3 (0.0-0.4); Hematocrit 46.6 % (30.3-42.9); Hemoglobin 16.1 gm/dl (10.1-14.3); Lymphocytes # (Auto) 3.4 K/mm3 (1.2-5.4); Lymphocytes % (Auto) 45.8 % (13.4-35.0); Mean Corpuscular HGB Conc 35 % (30-34); Mean Corpuscular Volume 87 fl (79-97); Monocytes # (Auto) 0.5 K/mm3 (0.0-0.8); Monocytes % (Auto) 6.4 % (0.0-7.3); Platelet Count 308 K/mm3 (140-440); Red Blood Count 5.35 M/mm3 (3.65-5.03); Red Cell Distribution Width 13.9 % (13.2-15.2)
[2021-02-21 13:21] LABS: Alanine Aminotransferase 197 units/L (7-56); Albumin 4.1 g/dL (3.9-5); Blood Urea Nitrogen 6 mg/dL (7-17); Calcium 10.3 mg/dL (8.4-10.2); Hemolysis Index 7
[2021-02-21 13:27] LABS: Bilirubin,Urine NEG (Negative); Blood,Urine NEG (Negative); Color,Urine Yellow (Yellow); Protein,Urine <15 mg/dL mg/dL (Negative); Urobilinogen,Urine < 2.0 mg/dL (<2.0)
[2021-02-21] MEDS ORDERED: SODIUM CHLORIDE 0.9% 1000 ML 1,000 ML IV ONE (13:27)
[2021-02-21 13:28] LABS: Bacteria,Urine 1+ /HPF (Negative); Mucus,Urine FEW /HPF; Trichomonas,Urine FEW /HPF
[2021-02-21 13:46] LABS: BUN/Creatinine Ratio 10
--- NOTE | 2021-02-21 16:28 | Cat Scan Report ---
CT ABDOMEN AND PELVIS WITH CONTRAST HISTORY: generalized abd pain, diarrhea OMNIPAQUE 300 100ML. COMPARISON: There is a CT angiogram abdomen from 08/01/2013, but I am unable to access images TECHNIQUE: CT images of the abdomen and pelvis were obtained following administration of intravenous contrast. All CT scans at this location are performed using CT dose reduction for ALARA by means of automated exposure control. CONTRAST: 100 ml of intravenous contrast administered. FINDINGS: Lungs/bones: There are 3 separate pleural-based nodules measuring up to 2-3 mm (for example see imag e #2 of series #2 in the right lower lobe). Lungs are otherwise clear. There are degenerative changes in the spine and pelvis with nothing acute. A bone island is present in the left femoral head. Abdomen/pelvis: There is hepatic steatosis. The liver is also enlarged. The gallbladder, spleen, phan creas, adrenals, kidneys, and proximal GI tract appear unremarkable. Urinary bladder is unremarkable. Uterus is slightly lobulated and may represent fibroid disease. No p elvic free fluid. There is moderate colonic diverticulosis with mild inflammatory change along the de scending colon in the mid segment. There is no bowel obstruction, abscess, or free air. The appendix and terminal ileum appear normal. IMPRESSION: 1. Acute uncomplicated mid descending colonic diverticulitis. 2. Additional incidental findings as above including pulmonary nodules measuring up to 3 mm. Please s ee below recommendations. INCIDENTAL PULMONARY NODULE RECOMMENDATION RECOMMENDATION: Solid Nodule size <6 mm -- Single or Multiple - Low Risk Patient: No routine follow-up - High Risk Patient: Optional CT at 12 months Note These recommendations do not apply to lung cancer screening, patients with immunosuppression, o r patients with known primary cancer. Note Newly detected indeterminate nodule in persons 35 years of age or older. Persons under the age of 35 should not receive follow-up unless there is a known primary cancer. Note A Perifissural Nodule is a fissure-attached/subpleural, homogeneous, solid nodule that had smoo th margins and an oval, lentiform, or triangular shape. They represent about 20% of nodules detected in lung cancer screening, are invariably benign, and do not require follow-up. Nodules 10 mm or large r (or those with suspicious features) will continue to be managed based on the size criteria. Low Risk Patient -- minimal or absent history of smoking and of other known risk factors. High Risk Patient -- history of smoking or of other known risk factors. Nodule dimensions are average of long and short axes, rounded to the nearest millimeter. Based on 2017 Fleischner Society Guidelines found in Radiology 2017 284:228-243. https://[email or web address] https://www.ncbi.nlm.nih.gov/pmc/articles/UPW1758108/ Signer Name: Teja Charles MD Signed: 02/21/2021 4:23 PM Workstation Name: [id number]
[2021-02-21 17:19] VITALS: BP 134/79
== END 2021-02-21 17:19 | disposition home or self-care (01) ==
LOC: ED 11:22
DX: K57.92 Diverticulitis of intestine, part unspecified, without perforation or abscess without bleeding (principal); E11.65 Type 2 diabetes mellitus with hyperglycemia; R79.89 Other specified abnormal findings of blood chemistry; N39.0 Urinary tract infection, site not specified; F17.200 Nicotine dependence, unspecified, uncomplicated; Z79.899 Other long term (current) drug therapy; Z88.0 Allergy status to penicillin; Z98.51 Tubal ligation status
CPT/HCPCS: 36415; 74177; 80053; 81001; 83690; 85025; 87086; 96360; 96361; 99284; J7030; Q9967

== ENCOUNTER 2021-05-21 10:12 | Outpatient (CLI) | payer OTHER | END 2021-05-21 10:13 | disposition home or self-care (01) | LOC: LAB 10:12 | PROVIDERS: ATTEND Internal Medicine | DX: Z02.71 Encounter for disability determination (principal) | CPT/HCPCS: 36415; 86431 ==

== ENCOUNTER 2022-03-14 19:54 | Emergency (ER) | payer OTHER ==
[2022-03-14 20:44] VITALS: BP 153/81
== END 2022-03-14 23:14 | disposition left against medical advice (07) ==
LOC: ED 19:54
DX: M25.572 Pain in left ankle and joints of left foot (principal); Z53.21 Procedure and treatment not carried out due to patient leaving prior to being seen by health care provider